=== PATIENT | female | born 1995 | race Two or more races ===

== ENCOUNTER 2024-01-18 22:16 | Emergency (ER) | payer OTHER ==
[~2024-01-18] VITALS: Ht 175.3 cm; Wt 108.3 kg
[2024-01-19 00:17] VITALS: BP 143/86; PULSE 76; RESP 18; TEMP 98.2; O2SAT 99
== END 2024-01-19 01:00 | disposition home or self-care (01) ==
LOC: ER 22:16
DX: H92.02 Otalgia, left ear (principal); E78.5 Hyperlipidemia, unspecified